=== PATIENT | female | born 1980 | race Caucasian/White ===

== ENCOUNTER 2018-01-09 09:42 | Emergency (ER) | payer SELFPAY ==
--- NOTE | 2018-01-09 10:00 | CPEKG ---
Heart Rate: 91 RR Interval: 659 P-R Interval: 148 QRSD Interval: 80 QT Interval: 360 QTC Interval: 443 P [place]: 48 QRS [place]: 35 T Wave [place]: 35 EKG Severity - NORMAL ECG - EKG Impression: SINUS RHYTHM Electronically Signed By: Nelson Castillo 10-Jan-2018 19:12:08
[2018-01-09] MEDS ORDERED: OLANZapine DISINTEGR 5 MG TAB PO ONE (10:19)
[2018-01-09] MEDS ORDERED: IBUPROFEN 600 MG TAB PO ONE (10:19)
[2018-01-09 10:24] LABS: PLATELET COUNT 348 10^3/uL (150-400)
--- NOTE | 2018-01-09 10:29 | EDPHY ---
H & P Smoking Status: Never smoked Time Seen by Provider: 01/09/18 09:42 HPI/ROS: CHIEF COMPLAINT: Off medication HISTORY OF PRESENT ILLNESS: 37-year-old female presents to the emergency department by ambulance requesting her medication. Patient has a history of anxiety as well as a traumatic brain injury. The patient was recently started on medication for Behavioral Health. She was started on Zyprexa, Namenda, Prozac approximately 10 days ago. She was hospitalized for 1 week and then discharged. She states that they did not give her any medication or follow-up at that time. She denies substance abuse or alcohol. She denies suicidal homicidal ideation, however she does feel "overwhelmed". The patient is having anterior chest pain which is been present intermittently for the last 1 month. She denies feeling short of breath. Denies pleuritic chest pain. Denies any viral URI symptoms. No cough. No abdominal pain. No nausea or vomiting. She states that she is under a great deal of stress lately stating "my just took my kids at all my medication went to [place]". REVIEW OF SYSTEMS: Constitutional: No fever, no chills. Eyes: No double or blurry vision. ENT: No sore throat. Respiratory: No cough, no shortness of breath. Cardiac: chest pain. Gastrointestinal: No abdominal pain, vomiting or diarrhea. Genitourinary: No dysuria. Musculoskeletal: No neck or back pain. Skin: No rashes. Neurological: No headache. (Shamika,Hailee M) Past Medical/Surgical History: Traumatic brain injury (Nikkiin,Hailee M) Social History: from [place] (Nikkiin,Hailee M) Physical Exam: General Appearance: Alert, no distress. Eyes: Pupils equal and round. Extraocular motions are all intact. ENT: Mouth: Mucous membranes moist. Respiratory: No wheezing, rhonchi, or rales, lungs are clear to auscultation. Cardiovascular: Regular rate and rhythm. Gastrointestinal: Abdomen is soft and nontender, no masses, no rebound or guarding, bowel sounds normal. Neurological: Alert and oriented x 3, cranial nerves II through XII grossly intact Skin: Warm and dry, no rashes. Musculoskeletal: Nontender to palpate along the cervical, thoracic or lumbar spine. Neck is supple. Extremities: Full range of motion and no peripheral edema. Psychiatric: Patient is oriented X 3, there is no agitation. (Hailee Wick) Constitutional: Initial Vital Signs Temperature (C) 36.7 C 01/09/18 09:44 Heart Rate 96 01/09/18 09:44 Respiratory Rate 18 01/09/18 09:44 Blood Pressure 116/83 H 01/09/18 09:44 O2 Sat (%) 99 01/09/18 09:44 O2 Delivery Mode Room Air Allergies/Adverse Reactions: Sulfa (Sulfonamide Antibiotics) Allergy (Verified 01/09/18 09:56) Home Medications: Medication Instructions Recorded Adderall 10 MG (*) 01/09/18 FLUoxetine [Prozac 20 MG (*)] 20 mg PO DAILY #3 cap 01/09/18 Flexeril 10 MG (*) 01/09/18 Numenda 01/09/18 OLANZapine [Zyprexa] 5 mg PO DAILY #2 tablet 01/09/18 Prozac 10 MG (*) 01/09/18 Zyprexa 01/09/18 Medical Decision Making ED Course/Re-evaluation: 37-year-old female presents emergency department with chest pain. The patient stopped her medication abruptly because her took her medication away. Patient was recently started on Namenda, Zyprexa and Prozac. The patient has reproducible chest wall pain. EKG was unremarkable. Laboratory studies were all within normal limits. Patient was given 5 mg Zyprexa Zydis S per her request and was also given 600 mg of ibuprofen p.o.. Patient was serially re-examined. At 12:15 p.m., the patient is resting comfortably. She feels that her pain in her chest has resolved. The patient states that she does not have a suicidal homicidal plan, however she does does want to live anymore and feels very overwhelmed. Crisis has been called. Patient was evaluated by mental health. She does not meet criteria for admission. They have filled her medications for 3 days. She is going to the [facility]. (Hailee Wick) Differential Diagnosis: Depression including functional and major depression, situational depression, medication side effect, drugs and alcohol abuse. (Hailee Wick) Other Provider: PHYSICIAN DOCUMENTATION: The patient was evaluated and managed by the Physician Office Technologist. My co- signature indicates that I have reviewed this chart and I agree with the findings and plan of care as documented. I am the secondary supervising physician. (Jani Frederick) - Data Points Laboratory Results: Laboratory Results 01/09/18 10:08 01/09/18 10:08 01/09/18 01/09/18 01/09/18 10:09 10:08 10:08 WBC RBC Hgb Hct MCV MCH MCHC RDW Plt Count MPV Neut % (Auto) Lymph % (Auto) [place] % (Auto) Eos % (Auto) Baso % (Auto) Nucleat RBC Rel Count Absolute Neuts (auto) Absolute Lymphs (auto) Absolute Monos (auto) Absolute Eos (auto) Absolute Basos (auto) Absolute Nucleated RBC Immature Gran % Immature Gran # Sodium 139 mEq/L mEq/L (135-145) Potassium 3.9 mEq/L mEq/L (3.5-5.2) Chloride 105 mEq/L mEq/L (97-110) Carbon Dioxide 24 mEq/l mEq/l (22-31) Anion Gap 10 mEq/L mEq/L (8-16) BUN 10 mg/dL mg/dL (7-23) Creatinine 0.6 mg/dL mg/dL (0.6-1.0) Estimated GFR > 60 Glucose 96 mg/dL mg/dL (70-100) Calcium 9.3 mg/dL mg/dL (8.5-10.4) Beta HCG, Qual NEGATIVE Urine Opiates Screen NEGATIVE (NEGATIVE) Urine Barbiturates NEGATIVE (NEGATIVE) Ur Phencyclidine Scrn NEGATIVE (NEGATIVE) Ur Amphetamine Screen NEGATIVE (NEGATIVE) U Benzodiazepines Scrn NEGATIVE (NEGATIVE) Urine Cocaine Screen NEGATIVE (NEGATIVE) U Marijuana (THC) Screen NEGATIVE (NEGATIVE) 01/09/18 10:08 WBC 9.31 10^3/uL 10^3/uL (3.80-9.50) RBC 4.45 10^6/uL 10^6/uL (4.18-5.33) Hgb 13.6 g/dL g/dL (12.6-16.3) Hct 38.9 % % (38.0-47.0) MCV 87.4 fL fL (81.5-99.8) MCH 30.6 pg pg (27.9-34.1) MCHC 35.0 g/dL g/dL (32.4-36.7) RDW 11.8 % % (11.5-15.2) Plt Count 348 10^3/uL 10^3/uL (150-400) MPV 8.5 fL L fL (8.7-11.7) Neut % (Auto) 78.7 % H % (39.3-74.2) Lymph % (Auto) 14.3 % L % (15.0-45.0) [place] % (Auto) 5.2 % % (4.5-13.0) Eos % (Auto) 1.0 % % (0.6-7.6) Baso % (Auto) 0.5 % % (0.3-1.7) Nucleat RBC Rel Count 0.0 % % (0.0-0.2) Absolute Neuts (auto) 7.33 10^3/uL H 10^3/uL (1.70-6.50) Absolute Lymphs (auto) 1.33 10^3/uL 10^3/uL (1.00-3.00) Absolute Monos (auto) 0.48 10^3/uL 10^3/uL (0.30-0.80) Absolute Eos (auto) 0.09 10^3/uL 10^3/uL (0.03-0.40) Absolute Basos (auto) 0.05 10^3/uL 10^3/uL (0.02-0.10) Absolute Nucleated RBC 0.00 10^3/uL 10^3/uL (0-0.01) Immature Gran % 0.3 % % (0.0-1.1) Immature Gran # 0.03 10^3/uL 10^3/uL (0.00-0.10) Sodium Potassium Chloride Carbon Dioxide Anion Gap BUN Creatinine Estimated GFR Glucose Calcium Beta HCG, Qual Urine Opiates Screen Urine Barbiturates Ur Phencyclidine Scrn Ur Amphetamine Screen U Benzodiazepines Scrn Urine Cocaine Screen U Marijuana (THC) Screen Medications Given: Discontinued Medications Ibuprofen (Motrin) 600 mg PO EDNOW ONE Stop: 01/09/18 10:20 Last Admin: 01/09/18 10:29 Dose: Not Given Olanzapine (Zyprexa Zydis) 5 mg PO EDNOW ONE Stop: 01/09/18 10:20 Last Admin: 01/09/18 10:34 Dose: 5 mg Departure - Departure Disposition: Home, Routine, Self-Care Clinical Impression: Depression Qualifiers: Depression Type: unspecified Qualified Code(s): F32.9 - Major depressive disorder, single episode, unspecified Condition: Good Instructions: Depression (ED) Additional Instructions: Follow up with [facility]. Continue medications as prescribed. Referrals: [facility],. [Clinic] - As per Instructions Prescriptions: FLUoxetine [Prozac 20 MG (*)] 20 mg PO DAILY #3 cap OLANZapine [Zyprexa] 5 mg PO DAILY #2 tablet
[2018-01-09 16:28] VITALS: BP 112/74
--- NOTE | 2018-01-09 16:31 | ASMTCMCOM ---
CM Note CM Note Notes: Patient came to ED requesting medication refills and a 3 day stay at [facility] inpatient psychiatric unit. After her evaluation with [facility], she did not meet criteria for inpatient psych. The [facility] mold closer and I provided her with resources on women's shelters in the area, and she was able to go to the [facility]. Bus pass given and prescriptions filled by Giulia and paid for by Case Management. Date Signed: 01/09/2018 04:30 PM Electronically Signed By:Krystin Marcum RN
== END 2018-01-09 16:28 | disposition home or self-care (01) ==
LOC: EDUNIT#
DX: F32.9 Major depressive disorder, single episode, unspecified (principal)
CPT/HCPCS: 80305